=== PATIENT | female | born 1980 | race Caucasian/White ===

== ENCOUNTER 2019-08-10 19:54 | Emergency (ER) | payer SELFPAY ==
[2019-08-10 20:48] LABS: Urine Blood NEGATIVE (NEG); Urine Glucose NEGATIVE (NEG); Urine Protein NEGATIVE (NEG)
[2019-08-10] MEDS ORDERED: KETOROLAC 30 MG/ML INJ ONE (20:57)
--- NOTE | 2019-08-10 21:02 | EDPHYS ---
Physician Documentation [facility] Name: Kinjal Capellan Age: 39 yrs Sex: Female : 1980 Arrival Date: 08/10/2019 Time: 19:59 Bed 4 Private MD: ED Physician Marshall Del Cid HPI: 08/11 00:17 This 39 yrs old Female presents to ER via Ambulatory with complaints of Back tw4 Pain. 00:17 The patient presents with pain that is acute. The symptoms are located in the low back. tw4 The pain does not radiate. 00:17 Onset: The symptoms/episode began/occurred 3 week(s) ago. Associated signs and tw4 symptoms: The patient has no apparent associated signs or symptoms. The problem was sustained when lifting. Modifying factors: The patient symptoms are alleviated by rest, the patient symptoms are aggravated by bending, lifting, movement. The patient has not experienced similar symptoms in the past. DIRECTOR ASSET: 08/10 20:08 LMP 07/31/2019 ca1 Historical: - Allergies: 20:08 hydrocodone-acetaminophen; ca1 - Home Meds: 20:08 None [Active]; ca1 - PMHx: 20:08 None; ca1 - PSHx: 20:08 Cholecystectomy; Appendectomy; ca1 - Immunization history:: Adult Immunizations up to date, Pneumococcal vaccine is not up to date, Flu vaccine is not up to date. - Social history:: Smoking status: Patient uses tobacco products, denies chronic smoking, but will smoke occasionally. - Ebola Screening: : Patient negative for fever greater than or equal to 101.5 degrees Fahrenheit, and additional compatible Ebola Virus Disease symptoms Patient denies exposure to infectious person Patient denies travel to an Ebola-affected area in the 21 days before illness onset No symptoms or risks identified at this time. ROS: 08/11 00:17 Constitutional: Negative for fever, chills, and weight loss, Eyes: Negative for injury, tw4 pain, redness, and discharge, Cardiovascular: Negative for chest pain, palpitations, and edema, Respiratory: Negative for shortness of breath, cough, wheezing, and pleuritic chest pain, Abdomen/GI: Negative for abdominal pain, nausea, vomiting, diarrhea, and constipation, MS/Extremity: Negative for injury and deformity, Skin: Negative for injury, rash, and discoloration, Neuro: Negative for headache, weakness, numbness, tingling, and seizure. Back: Positive for injury or acute deformity, decreased range of motion, pain at rest, pain with movement, Negative for radiated pain. : Positive for burning with urination, foul smelling urine, vaginal discharge, Negative for injury or acute deformity, urinary symptoms, urinary frequency, small amounts. Exam: 00:17 Constitutional: This is a well developed, well nourished patient who is awake, alert, tw4 and in no acute distress. Head/Face: Normocephalic, atraumatic. Chest/axilla: Normal chest wall appearance and motion. Nontender with no deformity. No lesions are appreciated. Cardiovascular: Regular rate and rhythm with a normal S1 and S2. No gallops, murmurs, or rubs. Normal PMI, no JVD. No pulse deficits. Respiratory: Lungs have equal breath sounds bilaterally, clear to auscultation and percussion. No rales, rhonchi or wheezes noted. No increased work of breathing, no retractions or nasal flaring. Abdomen/GI: Soft, non-tender, with normal bowel sounds. No distension or tympany. No guarding or rebound. No evidence of tenderness throughout. MS/ Extremity: Pulses equal, no cyanosis. Neurovascular intact. Full, normal range of motion. Neuro: Awake and alert, GCS 15, oriented to person, place, time, and situation. Cranial nerves II-XII grossly intact. Motor strength 5/5 in all extremities. Sensory grossly intact. Cerebellar exam normal. Normal gait. 00:17 Back: pain, that is mild, ROM is decreased, with all movement, normal spinal alignment noted, muscle spasm, is appreciated in the left low back. Vital Signs: 1208 20:08 BP 143 / 96; Pulse 72; Resp 16 S; Temp 98.7(O); Pulse Ox 99% on R/A; Weight 99.79 kg ca1 (R); Height 5 ft. 6 in. (167.64 cm) (R); Pain 6/10; 20:52 BP 137 / 82; Pulse 57; Resp 16; Temp 98.7; Pulse Ox 98% on R/A; ak1 21:18 BP 118 / 78; Pulse 56; Resp 16; Pulse Ox 98% on R/A; ak1 20:08 Body Mass Index 35.51 (99.79 kg, 167.64 cm) ca1 MDM: 20:20 Patient medically screened. tw4 08/11 00:17 Differential diagnosis: chronic back pain, Fatigue Joint Injury Ligament Injury sprain. tw4 Data reviewed: vital signs, nurses notes. Data interpreted: Pulse oximetry: Interpretation: normal. Counseling: I had a detailed discussion with the patient and/or guardian regarding: the historical points, exam findings, and any diagnostic results supporting the discharge/admit diagnosis. Medication response: Toradol partially relieved the patient's pain. Response to treatment: the patient's symptoms have mildly improved after treatment, and as a result, I will discharge patient. 08/10 20:39 Order name: Urine Dipstick--Ancillary (enter results) ca 08/10 20:39 Order name: Urine --Ancillary (enter results) mt 08/10 20:22 Order name: Urine Dipstick-Ancillary (obtain specimen); Complete Time: 20:34 tw4 Administered Medications: 08/10 20:55 Drug: TORadol 60 mg Route: IM; Site: left gluteus; ak1 21:18 Follow up: Response: No adverse reaction; Pain is decreased ak1 Disposition: 08/10/19 21:01 Discharged to Home. Impression: Sprain of ligaments of lumbar spine. - Condition is Stable. - Discharge Instructions: Back Pain, Adult, Vaginitis, Back Injury Prevention. - Prescriptions for Ibuprofen 800 mg Oral Tablet - take 1 tablet by ORAL route every 8 hours As needed take with food; 30 tablet. Cyclobenzaprine 10 mg Oral Tablet - take 1 tablet by ORAL route every 8 hours As needed; 30 tablet. Tramadol 50 mg Oral Tablet - take 1 tablet by ORAL route every 8 hours as needed; 12 tablet. Flagyl 500 mg Oral Tablet - take 1 tablet by ORAL route every 12 hours for 7 days; 14 tablet. Doxycycline Hyclate 100 mg Oral Tablet - take 1 tablet by ORAL route every 12 hours; 20 tablet. - Medication Reconciliation Form, Thank You Letter, Antibiotic Education, Prescription Opioid Use form. - Follow up: Private Physician; When: Upon discharge from the Emergency Department; Reason: Recheck today's complaints, Continuance of care. - Problem is new. - Symptoms have improved. Signatures: Dispatcher [employer] Kinjal Nash, RN RN ak1 Marshall Del Cid MD MD tw4 Earlene Mistry RN RN ca1 Corrections: (The following items were deleted from the chart) 21:21 21:01 08/10/2019 21:01 Discharged to Home. Impression: Sprain of ligaments of lumbar ak1 spine. Condition is Stable. Forms are Medication Reconciliation Form, Thank You Letter, Antibiotic Education, Prescription Opioid Use. Follow up: Private Physician; When: Upon discharge from the Emergency Department; Reason: Recheck today's complaints, Continuance of care. Problem is new. Symptoms have improved. tw4
--- NOTE | 2019-08-10 21:02 | ER ---
Nurse's Notes [facility] Name: Kinjal Capellan Age: 39 yrs Sex: Female : 1980 Arrival Date: 08/10/2019 Time: 19:59 Bed 4 Private MD: Diagnosis: Sprain of ligaments of lumbar spine Presentation: 08/10 20:04 Presenting complaint: Patient states: L lower back pain that goes all the way to the R. ca1 Going on for about 3 weeks now. Reports urinary frequency and urgency. Reports urine smells more pungent than usual, and pain on groin and suprapubic area. Denies nausea and vomiting, fever. Transition of care: patient was not received from another setting of care. Onset of symptoms was August 10, 2019. Risk Assessment: Do you want to hurt yourself or someone else? Patient reports no desire to harm self or others. Initial Sepsis Screen: Does the patient meet any 2 criteria? Yes Does the patient have a suspected source of infection? No. Patient's initial sepsis screen is negative. Care prior to arrival: None. 20:04 Method Of Arrival: Ambulatory ca1 20:04 Acuity: JOSE 4 ca1 Triage Assessment: 20:22 General: Appears in no apparent distress. Behavior is calm, cooperative, pt talking on ak1 cell phone in [facility], did not hear her name called for room placement. . 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 - Social history:: Smoking status: Patient uses tobacco products, denies chronic smoking, but will smoke occasionally. - Ebola Screening: : Patient negative for fever greater than or equal to 101.5 degrees Fahrenheit, and additional compatible Ebola Virus Disease symptoms Patient denies exposure to infectious person Patient denies travel to an Ebola-affected area in the 21 days before illness onset No symptoms or risks identified at this time. Screenin:21 Abuse screen: Denies threats or abuse. Denies injuries from another. Nutritional ak1 screening: No deficits noted. Tuberculosis screening: No symptoms or risk factors identified. Fall Risk None identified. Assessment: 20:34 General: Appears in no apparent distress. Behavior is calm, cooperative, appropriate ak1 for age. Pain: Complains of pain in lumbar area and right low back. Neuro: Level of Consciousness is awake, alert, obeys commands, Oriented to person, place, time, situation, Air Conditioning Installer are equal bilaterally Moves all extremities. Full function Gait is steady, Speech is normal. Cardiovascular: No deficits noted. Respiratory: No deficits noted. GI: No signs and/or symptoms were reported involving the gastrointestinal system. 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 foul smell to her vaginal area X3 weeks. pt last sexual intercourse was 3 to 4 weeks prior to vaginal order and urinary frequency. 21:18 Reassessment: pt stated she was "embarrassed" to talk to Dr. Del Cid about her vaginal ak1 odor since he was a man. Dr. Del Cid made area and pt informed of treatment plan with antibiotics. pt encouraged to follow up with PCP or Track Repair Supervisor. Vital Signs: 20:08 BP 143 / 96; Pulse 72; Resp 16 S; Temp 98.7(O); Pulse Ox 99% on R/A; Weight 99.79 kg ca1 (R); Height 5 ft. 6 in. (167.64 cm) (R); Pain 6/10; 20:52 BP 137 / 82; Pulse 57; Resp 16; Temp 98.7; Pulse Ox 98% on R/A; ak1 21:18 BP 118 / 78; Pulse 56; Resp 16; Pulse Ox 98% on R/A; ak1 20:08 Body Mass Index 35.51 (99.79 kg, 167.64 cm) ca1 ED Course: 19:59 Patient arrived in ED. ds1 20:07 Triage completed. ca1 20:08 Arm band placed on right wrist. ca1 20:20 Marshall Del Cid MD is Attending Physician. tw4 20:21 Kinjal Johnson, RN is Primary Nurse. ak1 20:21 Patient has correct armband on for positive identification. Bed in low position. Call ak1 light in reach. Side rails up X 1. Pulse ox on. NIBP on. 21:20 No provider procedures requiring assistance completed. Patient did not have IV access ak1 during this emergency room visit. Administered Medications: 20:55 Drug: TORadol 60 mg Route: IM; Site: left gluteus; ak1 21:18 Follow up: Response: No adverse reaction; Pain is decreased ak1 Outcome: 21:01 Discharge ordered by . [email or web address] 21:20 Discharged to home ambulatory, with family. ak1 21:20 Condition: good 21:20 Discharge instructions given to patient, Instructed on discharge instructions, follow up and referral plans. no drinking with medication, no driving heavy equipment, medication usage, safe sex practices, control, Demonstrated understanding of instructions, follow-up care, medications, Prescriptions given X 4. 21:21 Patient left the ED. ak1 Signatures: Billie Ware ds1 Kinjal Johnson RN RN ak1 Marshall Del Cid MD MD tw4 Earlene Mistry RN RN ca1
[2019-08-11 01:56] VITALS: BP 118/78; O2SAT 98
[2019-08-11 01:57] VITALS: TEMP 98.7
== END 2019-08-10 21:21 | disposition home or self-care (01) ==
LOC: ER 19:54
DX: S33.5XXA Sprain of ligaments of lumbar spine, initial encounter (principal); X58.XXXA Exposure to other specified factors, initial encounter; Y93.89 Activity, other specified; Y92.9 Unspecified place or not applicable; Z88.5 Allergy status to narcotic agent; Z72.0 Tobacco use
CPT/HCPCS: 81003; 81025; 96372; 99283